=== PATIENT | male | born 1985 | race Caucasian/White ===

== ENCOUNTER 2020-03-21 18:25 | Inpatient (IN) ==
[2020-03-21] MEDS ORDERED: IOPAMIDOL 100 ML BOTTLE IV ONE (18:26)
[2020-03-21] MEDS ORDERED: 0.9 % SODIUM CHLORIDE 1,000 ML IV ONE (18:51)
[2020-03-21] MEDS ORDERED: HYDROmorphone 0.5 MG/0.5 ML SYRINGE IV ONE (18:51)
--- NOTE | 2020-03-21 19:03 | Emergency Department Note ---
Abdominal Pain HPI General Chief Complaint: Abdominal Pain Stated Complaint: abdominal pain Time Seen by Provider: 03/21/20 18:30 Source: patient Mode of arrival: ambulatory Limitations: no limitations History of Present Illness HPI Narrative: Narrative: 34-year-old male patient presents to the emergency department with chief complaint of worsening abdominal pain. Patient mentions he developed epigastric abdominal pain 3 days ago. This radiated up into his chest. He became concerned and was evaluated [facility] that day. I do not have those notes to review. However, patient mentions they did a chest x-ray and found no acute findings. They did some blood work and he was told "everything looked okay". He was discharged with conservative treatment. However, he mentions the pain is significantly worsened. It is now changed in character and consistency. He mentions the pain is in his epigastric area, sharp, stabbing, radiating towards the right and left upper quadrants. The pain then begins to radiate down towards his umbilicus. He rates the pain at 8/10. He denies previous episodes of abdominal pain. He denies preceding trauma. He denies alcohol intake. He denies previous history of UT or chest pain episodes. ROS: Admits to some chills. Denies headaches, tinnitus, or vision changes. Denies runny nose, sinus congestion, or cough. Denies shortness of breath. Denies retrosternal chest pain or palpitations. Denies nausea, vomiting, or diarrhea. Denies dysuria, hematuria, urinary frequency, or urinary urgency. Denies generalized or focal weakness. Related Data Allergies Allergy/AdvReac Type Severity Reaction Status Date / Time No Known Drug Allergies Allergy Unverified 03/21/20 18:31 Review of Systems ROS ROS Narrative: Narrative: All systems ED: reviewed and negative except as stated. [facility] Narrative Patient History Narrative: Narrative: Medical/Surgical/Family History All Active Problems (Updated 03/21/20 @ 21:53 by Jerry Rendon PA-C) Acute gallstone pancreatitis (Acute) Social History Smoking Status: Current some day smoker Exam Narrative Narrative: Narrative: General Limitations: no limitations General appearance: Present other (Well-developed, well-nourished, 34-year-old male patient laying semirecumbent on the emergency room gurney obviously uncomfortable. He is in no acute respiratory distress. Febrile. Is mildly tachycardic at heart rate of 102. All other vital signs normal.) Head Head: Present normocephalic Eye Eye: Present normal appearance, PERRL and EOMI; Absent scleral icterus and conjunctival injection ENT ENT: Present normal oropharynx and mucous membranes moist Neck Neck: Present trachea midline; Absent lymphadenopathy and thyromegaly Chest Chest: Present normal inspection and symmetric chest wall rise; Absent tenderness Respiratory Respiratory: Present normal lung sounds bilaterally; Absent respiratory distress, wheezes, stridor, accessory muscle use and prolonged expiratory phase Cardiovascular Cardiovascular: Present regular rate and normal rhythm; Absent systolic murmur and diastolic murmur Adbominal Abdominal: Present soft, tenderness, guarding and normal bowel sounds; Absent distention, rebound, rigidity, organomegaly, Orta's sign, tenderness at McBurney's Point and mass Expanded Abdominal Abdominal Tenderness: Present LUQ and moderate Extremities Extremities: Present normal inspection, full ROM and normal capillary refill; Ab sent pedal edema Back Back: Present normal inspection and full ROM; Absent CVA tenderness (R) and CVA tenderness (L) Neurological Neurological: Present alert and oriented X3 Psychiatric Psychiatric: Present normal affect and normal mood Skin Skin: Present warm (WNL), dry and normal color Course Course Course Narrative: The differential diagnosis for upper abdominal pain in the adult patient large and contains the following conditions. Predominately left sided: Splenomegaly, splenic infarct, splenic abscess, and splenic rupture. Predominately right sided: Biliary colic, acute cholecystitis, acute cholangitis, sphincter of Oddi dysfunction, acute hepatitis, perihepatitis (Brent -James-Eriberto syndrome), liver abscess, portal vein thrombosis, and Budd-Chiari syndrome. Patient has considerable tenderness on abdominal exam today. He is mildly tachycardic but afebrile. He does not meet SIRS criteria at this time. He was recently evaluated in the previous emergency department several days ago but I do not have those notes to review. I am going to order repeat laboratory st udies. I am going to order a contrast-enhanced CT scan of his abdomen/pelvis looking for the cause of his pain. We will treat his pain with IV Dilaudid 0.5 mg IVP. Reevaluation(s) Reevaluation #1: I reviewed the patient's diagnostics of the following: CBC WBC 15.5, RBC 4.80, hemoglobin 14.7, hematocrit 43.0, platelets 312. CMP total bilirubin 1.3, AST 114, ALT 251, alkaline phosphatase 109, all others normal limits. Troponin less than 0.01. Amylase 1443. Lipase 4280. Abdominal/pelvic CT scan showing mild acute pancreatitis. Radiologist does mention possible mild gallbladder wall thickening without other evidence of cholecystitis. He recommends an ultrasound to further evaluate the gallbladder. Ultrasound of the gallbladder was preliminary read as a thickened gallbladder wall with multiple stones.. Upon reevaluation of the patient he is laying supine on the emergency room gurney in peers comfortable. He remains afebrile with normal vital signs. He continues to have pain to his upper abdomen at this time. After reviewing all the data I discussed these findings with the patient. He is currently suf fering from pancreatitis that is suspected to be related to his gallbladder issue. He has no risk factors of extreme alcoholism or cholesterol issues that he knows of. With his developing gallstone pancreatitis I reached out to on- call general surgeon (Dr. Evans) about possible admission to the hospital. Time: 21:25 Reevaluation #2: The general surgeon requested that the patient be admitted to our facility. He should be kept n.p.o., continued on antibiotics, and have repeat amylase and lipase in the morning. Inpatient holding orders were placed for the patient. Afterwards, Dr. Evans has assumed the patient's overall care. All further treatment decisions, modalities, and ultimate patient disposition will be carried out by Dr. Evans. Vital Signs Vital signs: Vital Signs Temperature 97.5 F 03/21/20 18:26 Pulse Rate 102 H 03/21/20 18:26 Respiratory Rate 18 03/21/20 18:26 Blood Pressure 132/76 03/21/20 18:26 Pulse Oximetry (%) 95 03/21/20 18:26 Temperature 97.5 F 03/21/20 18:26 Pulse Rate 67 03/21/20 19:45 Respiratory Rate 18 03/21/20 18:26 Blood Pressure 124/81 03/21/20 19:45 Pulse Oximetry (%) 99 03/21/20 19:45 [facility] MDM Narrative Medical decision making narrative: Narrative: Lab Data Lab results reviewed: Yes I reviewed the patient's lab results. Result diagrams: 03/21/20 19:07 03/21/20 19:07 Labs: Lab Results 03/21/20 03/21/20 03/21/20 Range/Units 19:07 19:07 19:07 WBC 15.5 H (4.5-11.0) K/mcL RBC 4.80 (4.50-5.90) M/mcL Hgb 14.7 (13.5-16.5) g/dL Hct 43.0 (41.0-55.0) % MCV 89.6 (80.0-100.0) fL MCH 30.6 (26.0-34.0) pg MCHC 34.2 (31.0-36.0) g/dL RDW 12.5 (11.5-14.5) % Plt Count 312 (140-440) K/mcL MPV 10.2 (7.4-10.4) fL Neut % (Auto) 86.6 H (38.0-78.0) % Lymph % (Auto) 5.5 L (15.0-49.0) % [place] % (Auto) 7.6 (1.0-12.0) % Eos % (Auto) 0.2 (0.0-7.0) % Baso % (Auto) 0.1 (0.0-2.0) % Lymph # (Auto) 0.85 L (1.50-4.80) K/mcL [place] # (Auto) 1.18 H (0.10-0.90) K/mcL Eos # (Auto) 0.03 (0.00-0.70) K/mcL Baso # (Auto) 0.01 (0.00-0.20) K/mcL Absolute Neutrophils 13.42 H (1.80-8.00) K/mcL Sodium 133 (133-145) mmol/L Potassium 3.8 (3.3-5.1) mmol/L Chloride 102 (96-108) mmol/L Carbon Dioxide 22 (22-30) mmol/L Anion Gap 9.0 (8.0-16.0) BUN 9 (6-20) mg/dL Creatinine 0.8 (0.7-1.2) mg/dL GFR Calculation 116 Glucose 102 (70-105) mg/dL Calcium 9.0 (8.6-10.4) mg/dL Total Bilirubin 1.3 H (0.1-1.0) mg/dL AST 114 H (<40) U/L ALT 351 H (<40) U/L Alkaline Phosphatase 109 (39-117) U/L Troponin T < 0.01 (<0.03) ng/mL Total Protein 6.3 (5.9-8.4) gm/dL Albumin 3.7 (3.2-5.2) gm/dL Globulin 2.6 (2.2-3.7) gm/dL Albumin/Globulin Ratio 1.4 (1.0-2.3) Amylase 1443 H (28-100) U/L Lipase > 3000 H (7-60) U/L Radiology Data Radiology results reviewed: Yes I reviewed the patient's radiology results. Radiology results narrative: Contrast-enhanced CT scan of the abdomen/pelvis read by the radiologist mild acute pancreatitis. Possible mild gallbladder wall thickening without other evidence of cholecystitis. Radiologist recommended ultrasound to further evaluate. Limited abdominal ultrasound of the gallbladder was performed. Preliminary read of the ultrasound report showed thickened gallbladder wall with several gallston es. Common bile duct measured 6 mm. EKG Data EKG #1: EKG attestation: Yes I reviewed and interpreted this EKG. EKG results narrative: Twelve-lead EKG obtained showing sinus rhythm at a rate of 60 bpm. No ectopy. No ST segment changes. Normal intervals. Discharge Plan Patient/Caregiver Discharge Instructions Pt seen by [employer]ING MANAGER/PA only: Yes Clinical Impression: Acute gallstone pancreatitis Patient Disposition: Xfer As Inpt ([facility]) Condition: Good Follow up with: No,PCP [Primary Care Provider] -
[2020-03-21 19:59] LABS: Basophils # (Auto) 0.01 K/mcL (0.00-0.20); Basophils % (Auto) 0.1 % (0.0-2.0); Eosinophils # (Auto) 0.03 K/mcL (0.00-0.70); Eosinophils % (Auto) 0.2 % (0.0-7.0); Hemoglobin 14.7 g/dL (13.5-16.5); Lymphocytes # (Auto) 0.85 K/mcL (1.50-4.80); Lymphocytes % (Auto) 5.5 % (15.0-49.0); Mean Cell Volume 89.6 fL (80.0-100.0); Mean Corpuscular HGB Conc 34.2 g/dL (31.0-36.0); Mean Platelet Volume 10.2 fL (7.4-10.4); Monocytes # (Auto) 1.18 K/mcL (0.10-0.90); Monocytes % (Auto) 7.6 % (1.0-12.0); Neutrophils % (Auto) 86.6 % (38.0-78.0); Platelet Count 312 K/mcL (140-440); Red Cell Distribution Width 12.5 % (11.5-14.5); WBC 15.5 K/mcL (4.5-11.0)
[2020-03-21 20:20] LABS: ALT/SGPT 351 U/L (<40); AST/SGOT 114 U/L (<40); Albumin 3.7 gm/dL (3.2-5.2); Albumin/Globulin Ratio 1.4 (1.0-2.3); Alkaline Phosphatase 109 U/L (39-117); Amylase 1443 U/L (28-100); Bilirubin,Total 1.3 mg/dL (0.1-1.0); Blood Urea Nitrogen 9 mg/dL (6-20); Carbon Dioxide 22 mmol/L (22-30); Chloride 102 mmol/L (96-108); Globulin 2.6 gm/dL (2.2-3.7); Glomerular Filtration Rate 116; Glucose 102 mg/dL (70-105)
[2020-03-21] MEDS ORDERED: PIPERACILLIN SODIUM/TAZOBACTAM 3.375 GM in DEXTROSE 5% IN WATER 50 ML IV ONE (21:33)
[2020-03-21] MEDS ORDERED: ACETAMINOPHEN 325 MG TABLET PO PRN (21:53)
[2020-03-21] MEDS ORDERED: ONDANSETRON 4 MG/2 ML VIAL IV PRN (21:53)
[2020-03-21] MEDS: 0.9 % SODIUM CHLORIDE 10 ML SYRINGE IV SCH (23:39)
[2020-03-21] MEDS: 0.9 % SODIUM CHLORIDE 1,000 ML IV SCH (23:39)
[2020-03-22] MEDS: PIPERACILLIN SODIUM/TAZOBACTAM 3.375 GM in DEXTROSE 5% IN WATER 50 ML IV SCH ×6 (00:15→23:38)
[2020-03-22] MEDS: HYDROmorphone 0.5 MG/0.5 ML SYRINGE IV PRN ×5 (00:31→20:41)
--- NOTE | 2020-03-22 02:28 | Ultrasound Report ---
CLINICAL INFORMATION: Right upper quadrant pain. COMPARISON: None. FINDINGS: Liver is normal in size configuration and echotexture without focal lesion. The gallbladder demonstrates diffuse wall thickening with scattered tiny polyps less than 3 mm. Few small stones within the gallbladder neck demonstrate shadowing. The common bile duct is normal - 3 mm. Pancreas is hypoechoic compatible with diffuse pancreatitis IMPRESSION: 1. Cholecystitis 2. Mild pancreatitis Interpreted and Authenticated by: Moises Bishop 03/22/20
--- NOTE | 2020-03-22 03:35 | Cat Scan Report ---
CLINICAL INFORMATION: Upper abdominal pain COMPARISON: None. TECHNIQUE: Following enteric contrast, 80 cc of Isovue-370 were injected intravenously, and 60 seconds later, 0.625 mm helical slices were obtained from the mid heart through the subtrochanteric regions. Following reconstruction, 2.5 mm sagittal, coronal and axial reformatted images were processed and reviewed at bone, lung and soft tissue windows. Five minutes later, 0.625 mm helical slices were obtained from the mid heart through the kidneys and viewed at soft tissue windows.The exam was performed using radiation dose optimization techniques including, but not limited to, automated exposure control, adjustment of the mA and/or kV according to patient size and use of iterative reconstruction technique. FINDINGS: The lung bases show no abnormality - no effusion. The visualized heart is normal. Abdominal images show mild wall thickening of the gallbladder with minimal pericholecystic fluid and gallbladder mucosal enhancement. No stones identified. Intrahepatic and common bile ducts are normal caliber: CBD is 5 mm. The distal pancreatic body and tail are enlarged with decreased attenuation and edema in the peripancreatic fat planes. Findings are compatible with simple pancreatitis. Pancreatic duct is normal caliber - 2 mm. Both kidneys, adrenal glands, spleen and aorta, including aortic branches, are normal in size, configuration and attenuation without focal lesion. Pelvic images show prostate, urinary bladder and seminal vesicles are normal. No free air, free fluid or adenopathy. The stomach, small bowel, large bowel and appendix are all normal. Bone windows show no osseous abnormality. IMPRESSION: 1. Simple pancreatitis confined to the distal body and tail. 2. Probable cholecystitis. Gallbladder ultrasound will be performed Interpreted and Authenticated by: Moises Bishop 03/22/20
[2020-03-22] MEDS: 0.9 % SODIUM CHLORIDE 10 ML SYRINGE IV SCH ×3 (04:43→20:41)
[2020-03-22 07:33] LABS: Amylase 850 U/L (28-100)
[2020-03-22] MEDS: 0.9 % SODIUM CHLORIDE 1,000 ML IV SCH ×4 (12:13→23:38)
--- NOTE | 2020-03-22 13:35 | General Surg History&Physical ---
HPI History of Present Illness Patient information: Note initiated : 03/22/20 at 1:24 pm Service Date, if different from initiated Date: [] Patient: Gwyn Boyce a 34 y/o M admitted on 03/21/20 for abdominal pain. Chief Complaint: [] History of present illness: Mr. Boyce is a 34 year old M admitted with acute pancreatitis. The patient states that on Tuesday of this week in the evening he developed severe epigastric pain that became progressively diffuse across his entire upper abdomen. He did not have nausea or vomiting. The pain did not radiate through to his back. He relates onset of pain to an alcohol binge that he had been on for 2 days prior. He was seen in the emergency room at [facility] and was discharged with analgesics. He states that the pain became much worse and he was seen in our emergency room. Labs revealed white count 15,000 with a markedly elevated amylase and lipase. CT of abdomen revealed inflammation of the body and tail of the pancreas with thickening of the gallbladder wall. Ultrasound showed multiple stones with pericholecystic fluid and thickening of the gallbladder wall. Patient is admitted with moderately severe biliary pancreatitis. He feels better since admission but still has significant elevation in his amylase and lipase. Review of Systems All systems: reviewed and no additional remarkable complaints except as stated PFSH PFSH All Active Problems Acute gallstone pancreatitis (Acute) Family History (Updated 03/22/20 @ 13:30 by Usman Evans MD) Mother Chronic asthma Sister Chronic asthma Social History (Updated 03/22/20 @ 13:32 by Usman Evans MD) household members: family occupational status: employed smoking status: Current every day smoker alcohol intake frequency: a few times a month counseling given: Yes substance use type: marijuana MEDS/ALLERGIES Home Medications and Allergies Home Medications Medication Instructions Recorded Confirmed Type No Known Home Meds 03/21/20 03/21/20 History Allergies Allergy/AdvReac Type Severity Reaction Status Date / Time No Known Drug Allergies Allergy Unverified 03/21/20 18:31 Physical Examination Vital Signs Vital signs: Temp Pulse Resp BP Pulse Ox 98.0 F 80 16 122/70 96 03/22/20 12:00 03/22/20 12:00 03/22/20 12:00 03/22/20 12:00 03/22/20 12:00 General physical appearance General physical exam: well developed, well nourished, no distress and moderate pain Eyes Eye exam: PERRL and normal ocular movement; negative icteric ENT ENT exam: normal nares, normal mucosa, no hearing loss and no congestion Head Head exam IM: Present atraumatic, normal inspection and normocephalic Neck Neck exam: no masses, no bruits, trachea midline, no lymphadenopathy and no venous distension Cardiovascular Cardiovascular exam IM: Present normal rate and rhythm, RRR, +S1 and +S2 Respiratory Respiratory exam: normal expansion, normal respiratory effort, clear to percussion and clear to auscultation Abdomen Abdomen: Present tender (epigastric and right upper quadrant tenderness) Integumentary Integumentary: Present no rash, no growths and no abnormal pigmentation Neurologic Neurologic: Present normal coordination and normal sensation Musculoskeletal Musculoskeletal: Present normal gait and normal posture Psychiatric Psychiatric: Present oriented to time, oriented to person, oriented to place, speech is normal and memory intact Results Labs Result diagrams: 03/21/20 19:07 03/21/20 19:07 Labs: Abnormal lab results 03/21/20 03/21/20 03/22/20 Range/Units 19:07 19:07 06:00 WBC 15.5 H (4.5-11.0) K/mcL Neut % (Auto) 86.6 H (38.0-78.0) % Lymph % (Auto) 5.5 L (15.0-49.0) % Lymph # (Auto) 0.85 L (1.50-4.80) K/mcL [place] # (Auto) 1.18 H (0.10-0.90) K/mcL Absolute Neutrophils 13.42 H (1.80-8.00) K/mcL Total Bilirubin 1.3 H (0.1-1.0) mg/dL AST 114 H (<40) U/L ALT 351 H (<40) U/L Amylase 1443 H 850 H (28-100) U/L Lipase > 3000 H 1027 H (7-60) U/L Diabetes panel 03/21/20 Range/Units 19:07 Sodium 133 (133-145) mmol/L Potassium 3.8 (3.3-5.1) mmol/L Chloride 102 (96-108) mmol/L Carbon Dioxide 22 (22-30) mmol/L BUN 9 (6-20) mg/dL Creatinine 0.8 (0.7-1.2) mg/dL Glucose 102 (70-105) mg/dL Calcium 9.0 (8.6-10.4) mg/dL AST 114 H (<40) U/L ALT 351 H (<40) U/L Alkaline Phosphatase 109 (39-117) U/L Total Protein 6.3 (5.9-8.4) gm/dL Albumin 3.7 (3.2-5.2) gm/dL Calcium panel 03/21/20 Range/Units 19:07 Calcium 9.0 (8.6-10.4) mg/dL Albumin 3.7 (3.2-5.2) gm/dL Pituitary panel 03/21/20 Range/Units 19:07 Sodium 133 (133-145) mmol/L Potassium 3.8 (3.3-5.1) mmol/L Chloride 102 (96-108) mmol/L Carbon Dioxide 22 (22-30) mmol/L BUN 9 (6-20) mg/dL Creatinine 0.8 (0.7-1.2) mg/dL Glucose 102 (70-105) mg/dL Calcium 9.0 (8.6-10.4) mg/dL Adrenal panel 03/21/20 Range/Units 19:07 Sodium 133 (133-145) mmol/L Potassium 3.8 (3.3-5.1) mmol/L Chloride 102 (96-108) mmol/L Carbon Dioxide 22 (22-30) mmol/L BUN 9 (6-20) mg/dL Creatinine 0.8 (0.7-1.2) mg/dL Glucose 102 (70-105) mg/dL Calcium 9.0 (8.6-10.4) mg/dL Total Bilirubin 1.3 H (0.1-1.0) mg/dL AST 114 H (<40) U/L ALT 351 H (<40) U/L Alkaline Phosphatase 109 (39-117) U/L Total Protein 6.3 (5.9-8.4) gm/dL Albumin 3.7 (3.2-5.2) gm/dL All other labs normal. A/P Assessment and plan (1) Acute gallstone pancreatitis: Status: Acute Narrative A/P Narrative: continue IV hydration Recheck amylase lipase and LFTs in the morning Probable cholecystectomy on March 25 Time Spent With Patient Time: Total time spent is greater than 50% in coordination of care (as documented) at patient's floor/unit and/or counseling patient:
[2020-03-22 16:03] LABS: ALT/SGPT 234 U/L (<40); AST/SGOT 49 U/L (<40); Albumin 3.6 gm/dL (3.2-5.2); Albumin/Globulin Ratio 1.3 (1.0-2.3); Alkaline Phosphatase 101 U/L (39-117); Bilirubin,Direct 0.6 mg/dL (<0.3); Bilirubin,Total 1.3 mg/dL (0.1-1.0); Blood Urea Nitrogen 6 mg/dL (6-20); Calcium 8.6 mg/dL (8.6-10.4); Carbon Dioxide 24 mmol/L (22-30); Chloride 99 mmol/L (96-108); Globulin 2.8 gm/dL (2.2-3.7); Glomerular Filtration Rate 116; Glucose 74 mg/dL (70-105); Lactate Dehydrogenase 138 U/L (135-225); Phosphorous 1.9 mg/dL (2.5-4.5); Triglycerides 79 mg/dL (<150); Uric Acid 2.8 mg/dL (2.5-8.0)
[2020-03-23] MEDS: 0.9 % SODIUM CHLORIDE 1,000 ML IV SCH ×4 (02:54→20:44)
[2020-03-23] MEDS: HYDROmorphone 0.5 MG/0.5 ML SYRINGE IV PRN ×7 (04:16→21:56)
[2020-03-23] MEDS: 0.9 % SODIUM CHLORIDE 10 ML SYRINGE IV SCH ×3 (04:16→20:44)
[2020-03-23] MEDS: PIPERACILLIN SODIUM/TAZOBACTAM 3.375 GM in DEXTROSE 5% IN WATER 50 ML IV SCH ×4 (06:08→23:58)
[2020-03-23 06:36] LABS: Basophils # (Auto) 0.02 K/mcL (0.00-0.20); Basophils % (Auto) 0.2 % (0.0-2.0); Eosinophils # (Auto) 0.14 K/mcL (0.00-0.70); Eosinophils % (Auto) 1.1 % (0.0-7.0); Hematocrit 40.1 % (41.0-55.0); Hemoglobin 13.3 g/dL (13.5-16.5); Lymphocytes # (Auto) 1.55 K/mcL (1.50-4.80); Mean Cell Volume 91.8 fL (80.0-100.0); Mean Corpuscular HGB Conc 33.2 g/dL (31.0-36.0); Mean Platelet Volume 9.8 fL (7.4-10.4); Monocytes # (Auto) 1.81 K/mcL (0.10-0.90); Neutrophils % (Auto) 72.7 % (38.0-78.0); Platelet Count 275 K/mcL (140-440); RBC 4.37 M/mcL (4.50-5.90); Red Cell Distribution Width 12.7 % (11.5-14.5); WBC 12.9 K/mcL (4.5-11.0)
[2020-03-23 07:14] LABS: ALT/SGPT 168 U/L (<40); AST/SGOT 27 U/L (<40); Albumin 3.1 gm/dL (3.2-5.2); Albumin/Globulin Ratio 1.1 (1.0-2.3); Alkaline Phosphatase 84 U/L (39-117); Bilirubin,Direct 0.4 mg/dL (<0.3); Bilirubin,Total 0.9 mg/dL (0.1-1.0); Blood Urea Nitrogen 5 mg/dL (6-20); Calcium 8.7 mg/dL (8.6-10.4); Carbon Dioxide 23 mmol/L (22-30); Chloride 103 mmol/L (96-108); Globulin 2.9 gm/dL (2.2-3.7); Glomerular Filtration Rate 111; Glucose 82 mg/dL (70-105); Lactate Dehydrogenase 134 U/L (135-225); Phosphorous 2.1 mg/dL (2.5-4.5); Triglycerides 85 mg/dL (<150); Uric Acid 2.8 mg/dL (2.5-8.0)
--- NOTE | 2020-03-23 14:57 | General Surgery Progress Note ---
SUBJECTIVE Subjective Patient information: Note initiated : 03/23/20 at 2:53 pm Service Date, if different from initiated Date: [] Patient: Gwyn Boyce 34 y/o M admitted on 03/21/20 for abdominal pain. Chief Complaint: [] Principal diagnosis: biliary pancreatitis Interval history: patient states that he feels better. He has much less abdominal pain. He denies nausea. Abdominal distention is much improved. Amylase 302, white blood count 12.9, hemoglobin 13.3, hematocrit 40.1 Constitutional Vitals: Vital Signs Temp Pulse Resp BP Pulse Ox 98.9 F 78 14 124/77 94 03/23/20 12:28 03/23/20 12:28 03/23/20 12:28 03/23/20 12:28 03/23/20 12:28 Period Temp Pulse Resp BP Sys/[place] Pulse Ox Last 24 Hr 98.3 F-99.4 F 78-97 13-16 118-139/77-85 93-98 Intake and Output 03/23/20 03/23/20 03/23/20 05:59 13:59 21:59 Intake Total 1180 1100 Balance 1180 1100 Intake & Output: Intake & Output 03/23/20 03/23/20 03/23/20 05:59 13:59 21:59 Intake Total 1180 1100 Balance 1180 1100 Intake: IV 1050 1100 Sodium Chloride 0.9% 1,000 ml @ 1000 1000 125 mls/hr IV .Q8H [facility] Rx#: [id number] Zosyn 3.375 gm In Dextrose 5% 50 100 in Water 50 ml @ 100 mls/hr IV Q6H [facility] Rx#:[id number] Oral 130 Other: # Voids 1 Head Head exam: Present atraumatic, normal inspection and normocephalic Eye Eye exam: Present EOMI Pupils: Present PERRL ENT ENT exam: Present mucous membranes moist, normal exam and normal oropharynx Neck Neck exam: Present full ROM and normal inspection Respiratory Respiratory exam: Present normal respiratory exam and CTAB; Absent rales, rhonchi and wheezes Cardiovascular Cardiovascular exam: Present normal rate and rhythm, RRR, +S1 and +S2 GI/Abdominal GI/Abdominal exam: Present soft and diminished bowel sounds; Absent distended, guarding and tenderness Extremities Exam Extremities exam: Present full ROM and normal inspection; Absent pedal edema Neurological Exam Neurological exam: Present alert, CN II-XII intact, oriented X3 and reflexes normal Psychiatric Psychiatric exam: Present normal affect A/P Assessment and plan (1) Acute gallstone pancreatitis: Status: Acute Narrative A/P Narrative: patient is clinically improved in will probably be stable for cholecystectomy in the morning We'll make decision after check an amylase and lipase in the morning May start clear liquids Time Spent With Patient Time: Total time spent is greater than 50% in coordination of care (as documente d) at patient's floor/unit and/or counseling patient:
[2020-03-24] MEDS: HYDROmorphone 0.5 MG/0.5 ML SYRINGE IV PRN ×8 (00:39→21:41)
[2020-03-24] MEDS: 0.9 % SODIUM CHLORIDE 1,000 ML IV SCH ×3 (05:07→16:02)
[2020-03-24] MEDS: 0.9 % SODIUM CHLORIDE 10 ML SYRINGE IV SCH ×3 (05:08→21:33)
[2020-03-24] MEDS: PIPERACILLIN SODIUM/TAZOBACTAM 3.375 GM in DEXTROSE 5% IN WATER 50 ML IV SCH ×4 (05:27→23:54)
[2020-03-24 07:10] LABS: Basophils # (Auto) 0.03 K/mcL (0.00-0.20); Basophils % (Auto) 0.3 % (0.0-2.0); Eosinophils # (Auto) 0.31 K/mcL (0.00-0.70); Eosinophils % (Auto) 3.5 % (0.0-7.0); Hemoglobin 13.5 g/dL (13.5-16.5); Lymphocytes % (Auto) 21.3 % (15.0-49.0); Mean Cell Volume 92.1 fL (80.0-100.0); Mean Corpuscular HGB Conc 32.9 g/dL (31.0-36.0); Mean Platelet Volume 9.9 fL (7.4-10.4); Monocytes # (Auto) 1.23 K/mcL (0.10-0.90); Monocytes % (Auto) 13.8 % (1.0-12.0); Neutrophils % (Auto) 61.1 % (38.0-78.0); Platelet Count 296 K/mcL (140-440); RBC 4.45 M/mcL (4.50-5.90); Red Cell Distribution Width 12.7 % (11.5-14.5); WBC 8.9 K/mcL (4.5-11.0)
[2020-03-24 09:18] LABS: Amylase 104 U/L (28-100)
[2020-03-24 09:22] LABS: ALT/SGPT 121 U/L (<40); AST/SGOT 17 U/L (<40); Albumin 3.2 gm/dL (3.2-5.2); Alkaline Phosphatase 81 U/L (39-117); Bilirubin,Direct 0.3 mg/dL (<0.3); Bilirubin,Total 0.8 mg/dL (0.1-1.0); Blood Urea Nitrogen 3 mg/dL (6-20); Calcium 8.8 mg/dL (8.6-10.4); Carbon Dioxide 23 mmol/L (22-30); Chloride 102 mmol/L (96-108); Globulin 3.2 gm/dL (2.2-3.7); Glomerular Filtration Rate 116; Glucose 91 mg/dL (70-105); Lactate Dehydrogenase 140 U/L (135-225); Phosphorous 2.9 mg/dL (2.5-4.5); Triglycerides 106 mg/dL (<150); Uric Acid 2.1 mg/dL (2.5-8.0)
[2020-03-24] MEDS ORDERED: IPRATROPIUM/ALBUTEROL 3 ML AMPUL.NEB NEB PRN ×3 (09:35→15:09)
[2020-03-24] MEDS ORDERED: SCOPOLAMINE 1 PATCH PATCH TOPICAL PRN ×2 (09:35→15:09)
[2020-03-24] MEDS ORDERED: ROCURONIUM 10 MG/ML ML IV ONE (13:54)
[2020-03-24] MEDS ORDERED: PROPOFOL 200 MG/20 ML VIAL IV ONE (13:54)
[2020-03-24] MEDS ORDERED: LIDOCAINE HCL/PF 100 MG/5 ML SYRINGE IV ONE (13:54)
[2020-03-24] MEDS ORDERED: ONDANSETRON 4 MG/2 ML VIAL ONE (13:54)
[2020-03-24] MEDS ORDERED: DEXAMETHASONE 10 MG/ML VIAL ONE (13:54)
[2020-03-24] MEDS ORDERED: SUGAMMADEX SODIUM 200 MG/2 ML VIAL IV ONE (13:54)
[2020-03-24] MEDS ORDERED: fentaNYL 100 MCG/2 ML VIAL IV ONE ×2 (13:54→15:30)
[2020-03-24] MEDS ORDERED: MIDAZOLAM 2 MG/2 ML VIAL ONE (13:54)
[2020-03-24] MEDS ORDERED: MEPERIDINE 25 MG/ML SYRINGE IV PRN ×2 (14:19→15:09)
[2020-03-24] MEDS ORDERED: FLUMAZENIL 0.1 MG/ML ML IV PRN ×2 (14:19→15:09)
[2020-03-24] MEDS ORDERED: ONDANSETRON 4 MG/2 ML VIAL IV PRN ×3 (14:19→15:09)
[2020-03-24] MEDS ORDERED: PROMETHAZINE 25 MG/ML VIAL IV PRN ×2 (14:19→15:09)
[2020-03-24] MEDS ORDERED: LACTATED RINGERS 250 ML IV PRN ×2 (14:19→15:09)
[2020-03-24] MEDS ORDERED: KETOROLAC 30 MG/ML VIAL IV PRN ×2 (14:19→15:09)
[2020-03-24] MEDS ORDERED: ACETAMINOPHEN 1,000 MG/100 ML BOTTLE IV ONE (14:19)
[2020-03-24] MEDS ORDERED: diphenhydrAMINE 50 MG/ML VIAL IV PRN ×2 (14:19→15:09)
[2020-03-24] MEDS ORDERED: fentaNYL 100 MCG/2 ML VIAL IV PRN ×2 (14:19→15:09)
[2020-03-24] MEDS ORDERED: NALOXONE HCL 0.4 MG/ML VIAL IV PRN ×2 (14:19→15:09)
[2020-03-24] MEDS ORDERED: LACTATED RINGERS 1,000 ML IV SCH ×2 (14:30→15:09)
--- NOTE | 2020-03-24 14:52 | Brief Operative Note ---
Brief Operative Note Date of procedure: 03/24/20 Pre-op diagnosis: cholelithiasis with cholecystitis Post-op diagnosis: other (cholelithiasis with cholecystitis) Procedure: laparoscopic cholecystectomy Grafts/Implants: No Anesthesia: GETA Findings: dilated inflamed gallbladder Complications: none Surgeon: Usman Evans Estimated blood loss (cc): 20 Specimens Removed/Pathology: other (gallbladder) Condition: stable Disposition: PACU
[2020-03-24] MEDS ORDERED: ACETAMINOPHEN 325 MG TABLET PO PRN (15:09)
[2020-03-24] MEDS ORDERED: IOPAMIDOL 100 ML BOTTLE IV ONE (15:09)
[2020-03-24] MEDS ORDERED: HYDROmorphone 0.5 MG/0.5 ML SYRINGE IV PRN (15:09)
[2020-03-24] MEDS: KETOROLAC 30 MG/ML VIAL IV SCH ×2 (17:22→23:54)
[2020-03-24] MEDS: ACETAMINOPHEN 1,000 MG/100 ML BOTTLE IV SCH (20:51)
[2020-03-25] MEDS: HYDROmorphone 0.5 MG/0.5 ML SYRINGE IV PRN ×5 (00:17→12:28)
[2020-03-25] MEDS: 0.9 % SODIUM CHLORIDE 10 ML SYRINGE IV SCH ×3 (00:19→15:19)
[2020-03-25] MEDS: 0.9 % SODIUM CHLORIDE 1,000 ML IV SCH ×4 (01:10→15:20)
[2020-03-25] MEDS: ACETAMINOPHEN 1,000 MG/100 ML BOTTLE IV SCH ×3 (03:04→15:20)
[2020-03-25] MEDS: KETOROLAC 30 MG/ML VIAL IV SCH ×2 (05:49→12:16)
[2020-03-25] MEDS: PIPERACILLIN SODIUM/TAZOBACTAM 3.375 GM in DEXTROSE 5% IN WATER 50 ML IV SCH ×2 (05:49→12:17)
[2020-03-25 08:03] LABS: Basophils # (Auto) 0.02 K/mcL (0.00-0.20); Basophils % (Auto) 0.2 % (0.0-2.0); Eosinophils # (Auto) 0.03 K/mcL (0.00-0.70); Eosinophils % (Auto) 0.3 % (0.0-7.0); Hematocrit 39.4 % (41.0-55.0); Hemoglobin 13.1 g/dL (13.5-16.5); Lymphocytes # (Auto) 1.28 K/mcL (1.50-4.80); Mean Cell Volume 91.4 fL (80.0-100.0); Mean Corpuscular HGB Conc 33.2 g/dL (31.0-36.0); Mean Platelet Volume 9.8 fL (7.4-10.4); Monocytes # (Auto) 1.01 K/mcL (0.10-0.90); Monocytes % (Auto) 9.5 % (1.0-12.0); Platelet Count 367 K/mcL (140-440); RBC 4.31 M/mcL (4.50-5.90); Red Cell Distribution Width 12.4 % (11.5-14.5); WBC 10.6 K/mcL (4.5-11.0)
[2020-03-25 08:33] LABS: ALT/SGPT 106 U/L (<40); AST/SGOT 35 U/L (<40); Albumin 3.2 gm/dL (3.2-5.2); Alkaline Phosphatase 92 U/L (39-117); Bilirubin,Direct 0.2 mg/dL (<0.3); Bilirubin,Total 0.5 mg/dL (0.1-1.0); Blood Urea Nitrogen 5 mg/dL (6-20); Calcium 8.7 mg/dL (8.6-10.4); Carbon Dioxide 24 mmol/L (22-30); Chloride 101 mmol/L (96-108); Globulin 3.1 gm/dL (2.2-3.7); Glomerular Filtration Rate 123; Glucose 94 mg/dL (70-105); Lactate Dehydrogenase 145 U/L (135-225); Phosphorous 3.4 mg/dL (2.5-4.5); Triglycerides 71 mg/dL (<150); Uric Acid 1.8 mg/dL (2.5-8.0)
[2020-03-25] MEDS ORDERED: oxyCODONE HCL 5 MG TABLET PO PRN (12:40)
--- NOTE | 2020-03-25 13:09 | Discharge Summary ---
Discharge Provider Provider Patient information: Note initiated : 03/25/20 at 1:04 pm Service Date, if different from initiated Date: [] Patient: Gwyn Boyce 34 y/o M admitted on 03/21/20 for abdominal pain. Chief Complaint: [] Date of admission: 03/21/20 23:17 Discharge date: 03/25/20 Primary care physician: PCP No Admitting clinician: Usman Evans Attending physician on admission: Usman Evans Consults: 03/22/20 08:34 Consult to Physician [CONS] Routine Comment: Consulting Provider: Jason Hills Reason For Exam: Physician to Consult Attending physician on discharge: Usman Evans Discharging clinician: Usman Evans COURSE Hospital Course Hospital course: 34-year-old male with three-day history of acute abdominal pain with nausea and vomiting. Evaluation revealed acute pancreatitis and cholelithiasis with thickened gallbladder wall. It was felt that he had biliary pancreatitis. He was treated with bowel rest and IV hydration and his amylase and lipase trended towards normal. He underwent laparoscopic cholecystectomy on yesterday. He has done well and is stable for discharge. Discharge diagnosis: acute biliary pancreatitis Secondary discharge diagnosis: cholelithiasis with cholecystitis Reason for admission: acute abdominal pain Procedures: laparoscopic cholecystectomy Pertinent studies/significant findings: CT of abdomen and pelvis Upper abdominal ultrasound Complications: none Time Spent with Patient Time attestation: Total time spent providing and/or coordinating discharge services: Physical Examination Vital Signs Vital signs: Temp Pulse Resp BP Pulse Ox 97.4 F 64 18 115/73 96 03/25/20 12:00 03/25/20 12:00 03/25/20 12:00 03/25/20 12:00 03/25/20 12:00 General physical appearance General physical exam: well developed, well nourished and no distress Eyes Eye exam: PERRL and normal ocular movement; negative icteric ENT ENT exam: normal nares, normal mucosa, no hearing loss and no congestion Head Head exam IM: Present atraumatic, normal inspection and normocephalic Cardiovascular Cardiovascular exam IM: Present normal rate and rhythm, RRR, +S1 and +S2 Respiratory Respiratory exam: normal expansion, normal respiratory effort, clear to percussion and clear to auscultation Abdomen Abdomen: Present tender (mild tenderness around port sites otherwise benign abdomen) and bowel sounds (normal bowel sounds) Integumentary Integumentary: Present no rash, no growths and no abnormal pigmentation Neurologic Neurologic: Present normal coordination and normal sensation Musculoskeletal Musculoskeletal: Present normal gait and normal posture Psychiatric Psychiatric: Present oriented to time, oriented to person, oriented to place, speech is normal and memory intact Discharge Plan Patient/Caregiver Discharge Instructions Activity: increase activity as tolerated Diet: Regular Diet and Low Fat Activity Restrictions/Additional Instructions: increase activity as tolerated Prescriptions: New oxycodone-acetaminophen [Endocet] 10-325 mg Tablet 1 tab PO Q4H PRN (Reason: Pain) Qty: 40 RF: 0 Follow Up Plan Follow up with: Becky,PCP [Primary Care Provider] - Usman Evans MD [Physician] - 04/08/20 (contact office to confirm appointment time) Patient Disposition: Home, Self-Care Prognosis: Good Rehab Potential: Good I certify that the patient requires SNF services: No Overall status at discharge: patient is progressing back to baseline Discharge Orders: Discharge Order (Routine); Ordered 03/25/20 Ordered By: Usman Evans Pending Pending Pending: Resuscitation Status Full Code Diet Full Liquid Diet Start TueMar 24 150 Hydromorphone HCl (Dilaudid) 1 mg IV Q2HP PRN; Protocol PRN Reason: Per Pain Protocol Last Admin: 03/25/20 08:28 Dose: 1 mg Documented by: Admin: 03/25/20 04:24 Dose: 1 mg Documented by: Admin: 03/25/20 02:14 Dose: 1 mg Documented by: Admin: 03/25/20 00:17 Dose: 1 mg Documented by: Admin: 03/24/20 21:41 Dose: 1 mg Documented by: Admin: 03/24/20 19:34 Dose: 1 mg Documented by: Admin: 03/24/20 17:22 Dose: 1 mg Documented by: JAVAN Sodium Chloride (Sodium Chloride 0.9%) 1,000 mls @ 125 mls/hr IV .Q8H ROOPA Last Infusion: 03/25/20 11:50 Dose: 0 mls/hr Documented by: Admin: 03/25/20 08:31 Dose: Not Given Documented by: Admin: 03/25/20 02:09 Dose: 125 mls/hr Documented by: Admin: 03/25/20 01:10 Dose: Not Given Documented by: Infusion: 03/25/20 00:02 Dose: 125 mls/hr Documented by: Admin: 03/24/20 16:02 Dose: 125 mls/hr Documented by: JAVAN Piperacillin Sod/Tazobactam (Sod 3.375 gm/ Dextrose) 50 mls @ 100 mls/hr IV Q6H ROOPA; Protocol Last Admin: 03/25/20 12:17 Dose: 100 mls/hr Documented by: Infusion: 03/25/20 06:30 Dose: 0 mls/hr Documented by: Admin: 03/25/20 05:49 Dose: 100 mls/hr Documented by: Infusion: 03/25/20 00:24 Dose: 0 mls/hr Documented by: Admin: 03/24/20 23:54 Dose: 100 mls/hr Documented by: Infusion: 03/24/20 19:28 Dose: 0 mls/hr Documented by: Admin: 03/24/20 17:22 Dose: 100 mls/hr Documented by: JAVAN Acetaminophen (Ofirmev) 1,000 mg in 100 mls @ 200 mls/hr IV Q6H ROOPA; Protocol Last Infusion: 03/25/20 09:05 Dose: 0 mls/hr Documented by: Admin: 03/25/20 08:27 Dose: 200 mls/hr Documented by: Infusion: 03/25/20 03:59 Dose: 0 mls/hr Documented by: Admin: 03/25/20 03:04 Dose: 200 mls/hr Documented by: Infusion: 03/24/20 22:00 Dose: 0 mls/hr Documented by: Admin: 03/24/20 20:51 Dose: 200 mls/hr Documented by: LAZARO Ketorolac Tromethamine (Toradol) 30 mg IV Q6 ROOPA Stop: 03/26/20 12:01 Last Admin: 03/25/20 12:16 Dose: 30 mg Documented by: Admin: 03/25/20 05:49 Dose: 30 mg Documented by: Admin: 03/24/20 23:54 Dose: 30 mg Documented by: Admin: 03/24/20 17:22 Dose: 30 mg Documented by: JAVAN Sodium Chloride (Saline Flush) 10 ml IV Q8 ROOPA Last Admin: 03/25/20 06:10 Dose: Not Given Documented by: Admin: 03/25/20 00:19 Dose: 10 ml Documented by: Admin: 03/24/20 21:33 Dose: Not Given Documented by: LAZARO Shift Summary 03/25/20 04:39 Shift Summary by Juhi Rey Pt A&O x4 and calls appropriately. Up with SBA and gait belt. Pt had laparasco pic cholecystectomy yesterday. Four lap sites with keyon and tegaderm CDI. Difficult to control pain, pt needing 1mg PRN dilaudid IV every two hours. Also receiving scheduled toradol 30mg IV q6 and offirmev 1g IV q6. IV to LFA has NS running at 125ml/hr. VSS on RA. Will update at bedside. Initialized on 03/25/20 04:39 - END OF NOTE
--- NOTE | 2020-03-25 15:36 | Operative Note ---
DATE OF OPERATION: 03/24/2020 PREOPERATIVE DIAGNOSIS: Cholelithiasis with cholecystitis. POSTOPERATIVE DIAGNOSIS: Cholelithiasis with cholecystitis. PROCEDURE: Laparoscopic cholecystectomy. SURGEON: Umsan Evans M.D. FINDINGS: Dilated, inflamed gallbladder. DESCRIPTION OF PROCEDURE: Under general anesthesia, the patient's abdomen was prepped and draped in a sterile field. Supraumbilical incision was made. Veress needle was inserted. Abdomen was insufflated with 3 liters of CO2. A 12 mm port was placed. Laparoscope was placed. Dilated, inflamed gallbladder was noted. Under videoscopic guidance, a 12 mm port and two 5 mm ports were placed in the right subcostal region. The gallbladder was decompressed with a Weck needle and then was grasped and positioned. Cystic duct and cystic artery were dissected. Cystic duct was clipped with five clips and divided. Cystic artery branch was clipped with four clips and divided. Gallbladder was from the hepatic bed using electrocautery. It was placed in an Endopouch and retrieved. Hemostasis was achieved. Irrigation was carried out. No drain was needed. CO2 was allowed to escape from the abdomen. The ports were removed. Fascia at the umbilicus was closed with 0 Vicryl. Incisions were closed with keyon. Tegaderm dressings were placed. The patient was awakened from anesthesia uneventfully, transferred to a bed, and taken to the postanesthetic care unit in satisfactory condition. [email or web address] Job ID: [id number] Doc ID: [id number] Usman Evans M.D.
--- NOTE | 2020-03-26 14:22 | Surgical Pathology Report ---
Histology Microscopic Diagnosis Specimen A- GALLBLADDER, CHOLECYSTECTOMY: -- CHRONIC CHOLECYSTITIS. -- CHOLELITHIASIS. (DMT:sln) Procedural Impression Acute gallstone pancreatitis. Gross Description Received in formalin labeled gallbladder is an 8.1 x 2.7 x 2.3 cm purple-donald gallbladder specimen. The majority of the serosa is smooth and glistening with approximately 30% roughened brown-donald. There are two metal clamps present one on the cystic duct. The mucosa is velvety pink-donald to green-donald and bile stained with no masses or lesions identified. The wall is up to 0.2 cm thick. Within the specimen there are multiple multilobular stones from less than 0.1 to 0.3 cm. Sewing Demonstrator sections submitted in one cassette. (KGW:sln) Electronically Signed Gwyn Mitchell MD, FCAP Electronically Signed 03/26/2020 2:21 PM
== END 2020-03-25 14:30 | disposition home or self-care (01) | DRG 418 ==
LOC: ED 18:25 → MEDSUR 23:16
PROVIDERS: ADMIT Family Medicine Adult Medicine; ATTEND Family Medicine Adult Medicine